=== PATIENT | female | born 1985 | race Hispanic/Latino ===

== ENCOUNTER 2020-07-28 09:46 | Emergency (ER) | payer OTHER ==
[2020-07-28] MEDS ORDERED: METHYLPREDNISOLONE SOD SUCC 125MG/2ML VIAL ONE (10:14)
[2020-07-28] MEDS ORDERED: FAMOTIDINE 20MG TAB 20 MG TAB ONE (10:14)
== END 2020-07-28 13:46 | disposition home or self-care (01) ==
LOC: EDH 09:46
DX: L50.0 Allergic urticaria (principal)
CPT/HCPCS: 96372; 99283; J2930

== ENCOUNTER 2020-07-30 04:48 | Emergency (ER) | payer OTHER ==
[2020-07-30] MEDS ORDERED: METHYLPREDNISOLONE SOD SUCC 125MG/2ML VIAL ONE (05:01)
[2020-07-30] MEDS ORDERED: HYDROXYZINE HCL 25 MG TABLET ONE (05:01)
== END 2020-07-30 05:44 | disposition home or self-care (01) ==
LOC: EDH 04:48
DX: L50.0 Allergic urticaria (principal)
CPT/HCPCS: 96372; 99283; J2930

== ENCOUNTER 2024-11-20 09:05 | Emergency (ER) | payer BC ==
[~2024-11-20] VITALS: Ht 162.6 cm; Wt 100.7 kg
--- NOTE | 2024-11-20 09:32 | ERN ---
General Chief Complaint: Syncope Stated Complaint: SYNCOPE 2 DAYS AGO Time Seen by MD: 09:08 Source: patient History of Present Illness Initial Comments Patient is 39 year old female who presented to ED with headache, nausea, dizziness. Patient started having headache, nausea, dizziness since Wednesday morning when she woke up. Patient had 1 episode of syncope Wednesday morning when she tried to get up from toilet seat in restroom at her home. She said she do not remember how long she was on floor, she was conscious and unable to get up. After some time her found her in restroom helped her to get up. She thought that it was her usual headaches, took Tylenol without any relief. Patient said she had 1 episode of diarrhea yesterday. She says she had severe headache, nausea, dizziness this morning when she woke up from bed. She denies chest pain, shortness of breath, palpitations, stomach pain,ear pain. Allergies: Coded Allergies: No Known Drug Allergies (Unverified Allergy, Unknown, 07/28/20) Past Medical History Past Medical History: Diabetes-Type II, High Cholesterol, Hypertension, Hypothyroid Past Surgical History: None Female( History) LMP: Oct 30, 2024 EENTM: (+) nose congestion; (-) eye pain, (-) blurred vision, (-) tearing, (-) double vision, (-) ear pain, (-) ear discharge, (-) nose pain, (-) throat pain, (-) Throat swelling, (- ) mouth pain, (-) tooth pain, (-) mouth swelling, (-) other documentation Respiratory: (-) cough, (-) orthopnea, (-) short of breath, (-) stridor, (-) wheezing, (-) other documentation Cardiovascular: (+) syncope; (-) chest pain, (-) edema, (-) palpitations, (-) dyspnea on exertion, (-) other documentation Gastrointestinal/Abdominal: (+) nausea, (+) vomiting, (+) diarrhea; (-) abdominal pain, (-) abdominal distention, (-) constipation, (-) rectal bleeding, (-) dark stool/melena, (-) other documentation Neuro: (+) headache, (+) syncope; (-) altered mental status, (-) paralysis, (-) numbness, (-) seizure, (-) pre- existing deficit, (-) tremors, (-) weakness, (-) dizziness, (-) slurred speech, (-) vertigo, (-) other documentation Review of Systems: was completed Nurses Notes Reviewed: Yes Physical Exam General Appearance: (+) mild distress Orientation: (+) alert, (+) oriented x 3 Head/Face Trauma: No Ear, Nose, Throat: (+) pharyngeal erythema, (+) sinus pain, (+) nasal congestion, (+) dry mucous membraine Neck: (-) normal inspection, (-) supple, (-) full range of motion, (-) no JVD, (-) non-tender, (-) no bruit, (-) tender, (-) limited range of motion, (-) tender lateral, (-) tender midline, (-) thyromegaly, (-) lymphadenopathy, (-) masses, (-) carotid bruit, (-) other documentaion Respiratory: (-) chest non-tender, (-) lungs clear, (-) well ventilated, (-) decreased breath sounds, (-) retractions, (-) abnormal breath sound, (-) crackles, (-) plerual rub, (-) rales, (-) rhonchi, (-) stridor, (-) wheezing, (-) other documentation Heart: (-) regular, (-) no gallop, (-) murmur, (-) irregular, (-) bradycardia, (-) tachycardia, (-) systolic murmur, (-) diastolic murmur, (-) extra beats, (-) friction rub, (-) gallop/S3, (-) gallop/S4, (-) other documentation Gastrointestinal: (+) soft, (+) non-tender; (-) no organomegaly, (-) bowel sound present, (-) distended, (-) tender, (-) abnormal bowel sounds, (-) bowel sound absent, (-) rebound, (-) anguiano's sign, (-) guarding, (-) hernia, (-) mass, (-) pulsatile mass, (-) CVA tenderness, (-) hepatomegaly, (-) spleenomegaly, (-) other documentation, (-) McBerney's, (-) other documentation Neurologic/Psychiatric: (+) normal speech, (+) no motor defecits, (+) no sensory deficits Results Laboratory and Microbiology Lab and Micro Result Laboratory Tests Test 11/20/24 09:40 11/20/24 09:44 11/20/24 11:10 Urine Color LIGHT-YELLOW (YELLOW) Urine Appearance CLEAR (CLEAR) Urine pH 5.5 (5.0-8.0) Urine Specific [place] 1.038 (1.001-1.031) Urine Protein NEGATIVE mg/dL (NEGATIVE) Urine Glucose (UA) >=1000 mg/dL (NEGATIVE) H Urine Ketones 20 mg/dL (NEGATIVE) H Urine Occult Blood NEGATIVE (NEGATIVE) Urine Nitrate NEGATIVE (NEGATIVE) Urine Bilirubin NEGATIVE mg/dL (NEGATIVE) Urine Urobilinogen 0.2 mg/dL (0.2-1.0) Urine Leukocyte Esterase NEGATIVE Stepan/uL Urine RBC 11-25 /HPF (0-1) H Urine WBC 2-5 /HPF (0-1) H Urine Squamous Epithelial Cells FEW /HPF (0-2) Urine Bacteria Rare /HPF (None Seen) Urine Yeast MANY /HPF (None Seen) Urine HCG, Qualitative NEGATIVE (NEGATIVE) White Blood Count 10.7 K/uL (4.8-10.8) Red Blood Count 6.06 MIL/uL (4.00-5.50) H Hemoglobin 16.7 g/dL (12.0-16.0) H Hematocrit 51.9 % (36-48) H Mean Corpuscular Volume 85.6 fL (79-99) Mean Corpuscular Hemoglobin 27.6 pg (27.0-33.0) Mean Corpuscular Hemoglobin Concent 32.2 g/dL (32.0-36.0) Red Cell Distribution Width 12.5 % (11.0-15.5) Platelet Count 343 K/uL (130-400) Mean Platelet Volume 9.6 fL (7.5-10.5) Immature Granulocyte % (Auto) 0.3 % (0-1) Neutrophils (%) (Auto) 73.9 % (40.0-77.0) Lymphocytes (%) (Auto) 18.8 % (21.0-51.0) L Monocytes (%) (Auto) 4.8 % (3.0-13.0) Eosinophils (%) (Auto) 1.7 % (0.0-8.0) Basophils (%) (Auto) 0.5 % (0.0-5.0) Neutrophils # (Auto) 7.9 K/uL (1.8-7.7) H Lymphocytes # (Auto) 2.0 K/uL (1.0-4.8) Monocytes # (Auto) 0.5 K/uL (0.1-1.0) Eosinophils # (Auto) 0.18 K/uL (0.00-0.70) Basophils # (Auto) 0.05 K/uL (0.00-0.20) Absolute Immature Granulocyte (auto 0.03 K/uL (0-1) Nucleated Red Blood Cells 0.0 % (0.0-0.19) Sodium Level 135 mmol/L (136-145) L Potassium Level 3.3 mmol/L (3.5-5.1) L Chloride Level 98 mmol/L (101-111) L Carbon Dioxide Level 29 mmol/L (21-32) Blood Urea Nitrogen 11 mg/dL (7-18) Creatinine 0.7 mg/dL (0.5-1.0) Glomerular Filtration Rate Calc 113 mL/min (>90) Random Glucose 175 mg/dL (70-105) H Total Calcium 9.4 mg/dL (8.5-10.1) Group A Streptococcus Rapid negative (NEGATIVE) EKG/XRAY/US/CT/MRI EKG Comment EK11/20/2024 09:47:07 Rate 94 sinus rhythm [place] 139 QRSD 88 QT 350 QTcB 439 AXIS P 53 QRS 38 T 12 NEGATIVE FOR STEMI MDM MDM: Differential diagnosis: Dehydration/ near syncope/ STEMI Rationale: Tests considered and ordered secondary to shared decision making include: Previous outside records reviewed: Old ER visits. Risk of complication and/or morbidity or mortality of patient management: None Medications-Per medication reconciliation Need for hospitalization: Patient does not meet criteria for hospitalization. Need for emergency major/minor surgery: No Patient is a 39-year-old female presented to ED with headaches, near syncope, nausea and dizziness. Vitals at presentation to ED blood pressure 143/87, pulse 105, saturating 98% at room air. Her EKG was negative for STEMI, urinalysis negative for UTI, CBC and blood chemistry are suggestive of severe dehydration. We started 1000 mL NS bolus and acetaminophen 500 mg p.o. for headache. After receiving fluids patient was evaluated, she still complained of headaches, examination reveals her throat is congested with enlarged tonsils, distended nasal mucosa, she has pain to touch near maxillary area. . Streptococcus rapid test was negative. We gave NS bolus 2nd time along with diphenhydramine 25 mg IV, prochlorperazine 10 mg IV, dexamethasone 4 mg IM. The Farina Syncope rule identifies patients who cannot be considered low risk of adverse outcomes after a syncopal event. Criteria include: History of congestive heart failure Hematocrit <30% Abnormal EKG (New ECG change from any source, any non-sinus rhythm on EKG or monitoring) Symptoms of shortness of breath Systolic BP <90 mmHg at triage If any of these criteria are noted, patient cannot be considered "low risk" of a serious outcome. In this study, a serious outcome is defined as ", myocardial infarction, arrhythmia, pulmonary embolism, stroke, subarachnoid hemorrhage, significant hemorrhage, or any condition causing a return ED visit and hospitalization for a related event." While the original paper identified a 96% sensitivity and 62% specificity for serious outcome (with negative predictive value 99.2% and positive predictive value 24.8%), validation studies have reported inconsistent results. Based on Farina syncope rule patient is considered low risk of serious outcome. ED Course Orders Procedure Category Date Status Time Cbc With Differential LAB 11/20/24 Complete 09:32 Basic Metabolic Panel LAB 11/20/24 Complete 09:32 12 Lead Ekg Tracing- EKG 11/20/24 Complete Technical 09:32 Urinalysis Profile LAB 11/20/24 Complete 09:32 ,Urine Test LAB 11/20/24 Complete 09:44 0.9%Nacl 1000ml (Ns PHA 11/20/24 Complete 1000ml) 10:00 Acetaminophen 500mg PHA 11/20/24 Complete Tab (Tylenol 500mg T 10:00 Prochlorperazine PHA 11/20/24 Complete 10mg/2ml Inj 11:00 Diphenhydramine Hcl PHA 11/20/24 Complete (Benadryl Inj) 11:00 0.9%Nacl 1000ml (Ns PHA 11/20/24 Complete 1000ml) 11:00 Rapid (Group A Strep) LAB 11/20/24 Complete 10:52 Dexamethasone 4mg/Ml PHA 11/20/24 Complete 1ml Vial (Dexametha 12:00 Current Medications Medications (Trade) Dose Ordered Sig/Jan Route PRN Reason Start Time Stop Time Status Last Admin Dose Admin Acetaminophen (TYLenol 500MG TAB) 500 mg ONCE ONCE PO 11/20/24 10:00 11/20/24 10:26 DC 11/20/24 10:39 Dexamethasone Sodium Phosphate (dexaMETHasone 4MG/ML 1ML VIAL) 4 mg ONCE ONCE IM 11/20/24 12:00 11/20/24 12:01 DC Diphenhydramine HCl (BENAdryl INJ) 25 mg ONCE ONCE IV 11/20/24 11:00 11/20/24 11:01 DC 11/20/24 11:08 Prochlorperazine Edisylate (Compazine 10mg/ 2ml Inj) 10 mg ONCE ONCE IV 11/20/24 11:00 11/20/24 11:01 DC 11/20/24 11:08 Sodium Chloride 1,000 ml @ 0 mls/hr ONCE ONCE IV 11/20/24 10:00 11/20/24 10:01 DC 11/20/24 10:04 Sodium Chloride 1,000 ml @ 0 mls/hr ONCE ONCE IV 11/20/24 11:00 11/20/24 11:01 DC 11/20/24 11:08 Vital Signs Date Time Temp Pulse Resp B/P (MAP) Pulse Ox O2 Delivery O2 Flow Rate FiO2 11/20/24 11:20 88 18 113/73 97 Room Air* 0 21 11/20/24 10:13 91 18 121/76 98 Room Air* 0 21 11/20/24 09:08 97.9 105 16 143/87 98 Room Air 0 HEART Score Response (Comments) Value History: Low suspicion (0) 0 EKG: Normal 0 Age: < 45yrs (0) 0 Risk Factors: No known risk factors (0) 0 Total 0 DX & DISP Disposition: Discharge Departure Impression: Primary Impression: Dehydration Additional Impression: Sinusitis Condition: Stable Scripts Fluticasone Propionate (Flonase Nasal [place]) 50 Mcg/Actuation [place] 2 SPRAY NS DAILY, #16 GM 0 Refills Prov: GAVIN JACINTO MD 11/20/24 Amoxicillin/Potassium Clav (Amox Tr-K Clv 875-125 mg Tab) 875 Mg-125 Mg Tablet 1 TAB PO BID for 10 Days, #20 TAB 0 Refills Prov: GAVIN JACINTO MD 11/20/24 Additional Instructions: FOLLOW-UP WITH PRIMARY CARE PROVIDER IN 1 TO 2 DAYS. TAKE MEDICATIONS DIRECTED HERE IN THE EMERGENCY ROOM. OKAY TO CONTINUE HOME MEDICATIONS UNLESS OTHERWISE DISCUSSED DURING YOUR VISIT IN THE EMERGENCY ROOM TODAY. RETURN TO YOUR NEAREST EMERGENCY ROOM IF SYMPTOMS WORSEN OR IF THERE IS NO IMPROVEMENT. CALL 911 IF YOU NEED IMMEDIATE ASSISTANCE. TAKE TYLENOL [id number] NEEDED AND IF NO CONTRAINDICATIONS ARE PRESENT. INCREASE ORAL HYDRATION. A WOUND CULTURE OR URINE CULTURE WAS ORDERED HERE IN THE EMERGENCY ROOM DEPARTMENT PLEASE FOLLOW-UP WITH PRIMARY CARE PROVIDER AND ADVISE THEM TO GET REPORTS FROM OUR FACILITY. IF YOU HAD ANY KARIE WRAP/SPLINTS THAT WERE APPLIED HERE, PLEASE DO NOT REMOVE THEM UNTIL YOU SEE YOUR PRIMARY CARE OR SPECIALTY. Referrals: Referrals: SELF,REFERRAL (PCP) ABRIL WEEKS MD Time of Disposition: 12:33 GAVIN JACINTO MD Nov 20, 2024 09:32 KATE TORRES MD Nov 20, 2024 09:52
[2024-11-20] MEDS: 0.9%NACL 1000ML 1,000 ML IV ONE ×2 (10:04→11:08)
[2024-11-20 10:05] LABS: IMMATURE GRANULOCYTE ABSOLUTE 0.03 K/uL (0-1); NUCLEATED RED BLOOD CELLS 0.0 % (0.0-0.19); PLATELET COUNT (AUTO) 343 K/uL (130-400); RED BLOOD CELL COUNT(AUTO) 6.06 MIL/uL (4.00-5.50); RED CELL DISTRIBUTION WIDTH 12.5 % (11.0-15.5); WHITE BLOOD COUNT (AUTO) 10.7 K/uL (4.8-10.8)
[2024-11-20 10:13] LABS: CREATININE 0.7 mg/dL (0.5-1.0); GLOMERULAR FILTR. RATE CALC 113.0 mL/min (>90); GLUCOSE,RANDOM 175.0 mg/dL (70-105); SODIUM SERUM 135.0 mmol/L (136-145); UREA NITROGEN, BLOOD 11.0 mg/dL (7-18)
[2024-11-20 10:29] LABS: APPEARANCE,URINE CLEAR (CLEAR); GLUCOSE, URINE (UA) >=1000 mg/dL (NEGATIVE); LEUKOCYTE ESTERASE ,URINE NEGATIVE Leu/uL (NEGATIVE); NITRATE,URINE NEGATIVE (NEGATIVE); OCCULT BLOOD,URINE NEGATIVE (NEGATIVE)
[2024-11-20 10:30] LABS: ADD UA MICROSCOPIC YES
--- NOTE | 2024-11-20 10:46 | EKG ---
[facility] Test Date: 2024-11-20 Test Time: 09:47:07 Pat Name: VALE MCKYA Department: [facility] Room: Gender: F Edge Beader: [id number] : 1985 Requested By: KATE TORRES Order Number: [id number] Reading MD: Phu Reyez Measurements Intervals [place] Rate: 94 P: 53 DE: 139 QRS: 38 QRSD: 88 T: 12 QT: 350 QTc: 439 Interpretive Statements Sinus rhythm No previous ECG available for comparison Electronically Signed On 11-21-2024 07:26:37 CDT by Phu Reyez Please click the below link to view image of tracing.
[2024-11-20 11:08] LABS: SQUAMOUS EPITHELIAL CELL,UR FEW /HPF (0-2); YEAST,URINE BUDDING MANY /HPF (None Seen)
[2024-11-20] MEDS: PROCHLORPERAZINE 10MG/2ML INJ IV ONE (11:08)
[2024-11-20] MEDS ORDERED: FLUT16H NS (12:35)
[2024-11-20] MEDS ORDERED: AMOX1TAB16 PO (12:35)
[2024-11-20 12:52] VITALS: BP 110/62; PULSE 84; RESP 18; TEMP 98.1; O2SAT 98
== END 2024-11-20 12:56 | disposition home or self-care (01) ==
LOC: EDH 09:05
DX: E86.0 Dehydration (principal); J32.9 Chronic sinusitis, unspecified; E03.9 Hypothyroidism, unspecified; E11.9 Type 2 diabetes mellitus without complications; E78.00 Pure hypercholesterolemia, unspecified; I10 Essential (primary) hypertension
CPT/HCPCS: 99284; 96374; 96361; 96375; 80048; 85025; 87880; 81001; 81025; 36415; 93005; 96372; J1100; J1200; J7030 ×2; J0780